=== PATIENT | female | born 1965 | race Caucasian/White ===

== ENCOUNTER 2017-09-28 05:20 | Day surgery (SDC) | payer BC ==
[~2017-09-28] VITALS: Ht 170.2 cm; Wt 127.0 kg
[~2017-09-28 05:20] MED LIST: NORVASC5 MG PO; PAXIL20 MG PO; PRAVACHOL20 MG PO; SEROQUEL100 MG PO; ZESTRIL10 MG PO; ZYLOPRIM100 MG PO
[2017-09-28 05:45] VITALS: BP 176/89
[2017-09-28 07:20] LABS: METH RESISTANT S AUREUS PCR NEGATIVE (NEGATIVE); PROBE CHECK PASS; SPECIMEN PROCESSING CONTROL PASS
[2017-09-28] MEDS ORDERED: NORCO 5/3251 TABLET PO (09:15)
[2017-09-28] MEDS ORDERED: MOTRIN600 MG PO (09:15)
[2017-09-28 10:00] VITALS: BP 133/70
[2017-09-28 11:00] VITALS: BP 116/66
== END 2017-09-28 11:28 | disposition home or self-care (01) ==
LOC: SDC 05:20
PROVIDERS: Surgery
PROC: 0WUF4JZ Supplement Abdominal Wall with Synthetic Substitute, Percutaneous Endoscopic Approach (ICD-10-PCS; principal; 2017-09-28)
DX: K43.2 Incisional hernia without obstruction or gangrene (principal); I10 Essential (primary) hypertension; E78.4 Other hyperlipidemia; F41.1 Generalized anxiety disorder; N39.3 Stress incontinence (female) (male); E66.01 Morbid (severe) obesity due to excess calories; Z68.41 Body mass index [BMI] 40.0-44.9, adult; Z86.14 Personal history of Methicillin resistant Staphylococcus aureus infection
CPT/HCPCS: 87641; C1781; J0131; J0690; J1100; J1170; J1885; J2250; J2405; J2710; J2765; J3010; Q0175; S0020